=== PATIENT | female | born 1990 | race Caucasian/White ===

== ENCOUNTER 2020-03-14 22:22 | Emergency (ER) | payer SELFPAY | END 2020-03-14 22:52 | disposition left against medical advice (07) | LOC: EMS 22:22 | DX: F15.90 Other stimulant use, unspecified, uncomplicated (principal); Z53.21 Procedure and treatment not carried out due to patient leaving prior to being seen by health care provider ==

== ENCOUNTER 2020-03-15 17:10 | Inpatient (IN) | payer MEDICAID ==
[~2020-03-15] VITALS: Ht 165.1 cm; Wt 54.5 kg
[2020-03-15] MEDS ORDERED: LORazepam 2 MG/ML VIAL IM ONE (17:45)
[2020-03-15] MEDS ORDERED: HALOPERIDOL LACTATE 5 MG/ML VIAL IM ONE (17:45)
[2020-03-15] MEDS ORDERED: DiphenhydrAMINE HCL 50 MG/ML VIAL IM ONE (17:45)
[2020-03-15 19:03] LABS: BASOPHILS % (AUTO) 0.7 % (0.0-2.0); EOSINOPHILS % (AUTO) 0.1 % (1.0-6.0); HEMATOCRIT 33.1 % (36-46); LYMPHOCYTES # (AUTO) 1.2 K/uL (1.0-4.8); LYMPHOCYTES % (AUTO) 10.4 % (22.0-44.0); MEAN CORPUSCULAR HEMOGLOBIN 27.1 pg (26.0-34.0); MEAN CORPUSCULAR HGB CONC 33.2 G/dL (31.0-37.0); MEAN CORPUSCULAR VOLUME 82 fL (80-100); MONOCYTES % (AUTO) 8.4 % (2.0-9.0); NEUTROPHILS # (AUTO) 9.4 K/uL (1.8-7.7); NEUTROPHILS % (AUTO) 80.4 % (40.0-70.0); PLATELET COUNT (AUTO) 274 K/uL (150-450); RED BLOOD CELL COUNT(AUTO) 4.05 MIL/uL (4.00-5.20)
[2020-03-15 19:17] LABS: ANION GAP 14 mmol/L (8-16); CALCIUM, TOTAL 8.7 mg/dL (8.8-10.5); CARBON DIOXIDE 21 mmol/L (22-29); CHLORIDE 100 mmol/L (98-107); CREATININE 0.74 mg/dL (0.60-1.30); GLOMERULAR FILTR. RATE CALC > 60 mL/min (>60); GLUCOSE,RANDOM 82 mg/dL (70-110); POTASSIUM 3.3 mmol/L (3.5-5.1); SODIUM SERUM 135 mmol/L (136-145); UREA NITROGEN, BLOOD 16 mg/dL (7-18)
[2020-03-15 19:23] LABS: ALANINE AMINOTRANSFERASE 19 U/L (12-78); ALBUMIN 3.6 g/dL (3.4-5.0); ALKALINE PHOSPHATASE 80 U/L (46-116); ASPARTATE AMINOTRANSFERASE 36 U/L (15-37); BILIRUBIN,TOTAL 1.3 mg/dL (0.1-1.0); TOTAL PROTEIN, SERUM 7.4 g/dL (6.4-8.2)
[2020-03-15] MEDS ORDERED: POTASSIUM CHLORIDE 20 MEQ ER TABLET PO ONE (20:30)
[2020-03-15 21:58] VITALS: BP 110/60
[2020-03-16 05:12] VITALS: BP 105/77
[2020-03-16] MEDS ORDERED: LOPERAMIDE HCL 2 MG CAPSULE PO PRN (07:00)
[2020-03-16] MEDS ORDERED: MAGNESIUM HYDROXIDE SUSPENSION 30 ML UDCUP PO PRN (07:00)
[2020-03-16] MEDS ORDERED: ACETAMINOPHEN 325 MG TABLET PO PRN (07:00)
[2020-03-16] MEDS ORDERED: ALBUTEROL SULFATE HFA 90 MCG/PUFF 8 GM INHALER IH PRN (07:00)
[2020-03-16] MEDS ORDERED: MAG HYDROX/AL HYDROX/SIMETH ES 30 ML SUSPENSION UDCUP PO PRN (07:00)
[2020-03-16] MEDS ORDERED: GuaiFENesin/D-METHORPHAN [SUGAR-FREE] 200-20MG/10 ML SYRUP UDCUP PO PRN (07:00)
[2020-03-16] MEDS ORDERED: ONDANSETRON HCL 4 MG TABLET PO PRN (07:00)
[2020-03-16] MEDS ORDERED: CloNIDine HCL 0.1 MG TABLET PO PRN (07:00)
[2020-03-16] MEDS ORDERED: DOCUSATE SODIUM 100 MG CAPSULE PO PRN (07:00)
[2020-03-16] MEDS ORDERED: IBUPROFEN 400 MG TABLET PO PRN (07:00)
[2020-03-16] MEDS ORDERED: NICOTINE 14 MG/24 HOUR PATCH TD PRN (07:00)
[2020-03-16] MEDS ORDERED: PETROLATUM,WHITE 28 GM JELLY TP PRN (07:00)
[2020-03-16] MEDS: BACITRACIN 28.4 GM OINTMENT TP SCH ×2 (08:51→18:59)
[2020-03-16] MEDS ORDERED: POTASSIUM CHLORIDE 20 MEQ ER TABLET PO ONE ×2 (09:15→16:45)
[2020-03-16] MEDS: OLANZapine 5 MG TABLET PO SCH (16:27)
[2020-03-17 06:03] VITALS: BP 101/72
[2020-03-17 07:39] LABS: ANION GAP 14 mmol/L (8-16); CALCIUM, TOTAL 8.5 mg/dL (8.8-10.5); CARBON DIOXIDE 23 mmol/L (22-29); CHLORIDE 102 mmol/L (98-107); CHOL/HDL RATIO 2.9 (3.9-5.7); CHOLESTEROL 146 mg/dL (131-200); CREATININE 0.73 mg/dL (0.60-1.30); GLOMERULAR FILTR. RATE CALC > 60 mL/min (>60); GLUCOSE,RANDOM 63 mg/dL (70-110); HDL CHOLESTEROL 50 mg/dL (40-60); LDL CHOL (CALC.) 75 mg/dL (0-130); POTASSIUM 3.7 mmol/L (3.5-5.1); SODIUM SERUM 139 mmol/L (136-145); TRIGLYCERIDES 106 mg/dL (15-150); UREA NITROGEN, BLOOD 13 mg/dL (7-18)
[2020-03-17] MEDS: OLANZapine 5 MG TABLET PO SCH ×2 (09:25→16:20)
[2020-03-17] MEDS: BACITRACIN 28.4 GM OINTMENT TP SCH ×2 (09:25→17:10)
[2020-03-17] MEDS: LORazepam 2 MG TABLET PO PRN (09:44)
[2020-03-17 16:47] VITALS: BP 120/78
[2020-03-18] MEDS: LORazepam 2 MG TABLET PO PRN ×2 (08:41→13:59)
[2020-03-18] MEDS: OLANZapine 5 MG TABLET PO SCH ×2 (08:41→16:36)
[2020-03-18] MEDS: BACITRACIN 28.4 GM OINTMENT TP SCH ×2 (08:41→16:36)
[2020-03-18] MEDS: HALOPERIDOL 5 MG TABLET PO PRN (12:04)
[2020-03-18 16:18] VITALS: BP 131/76
[2020-03-19 00:42] VITALS: BP 124/73
[2020-03-19] MEDS: MULTIVITAMINS WITH MINERALS, THERAPEUTIC TABLET PO SCH (08:23)
[2020-03-19] MEDS: OLANZapine 5 MG TABLET PO SCH ×2 (08:23→17:19)
[2020-03-19] MEDS: BACITRACIN 28.4 GM OINTMENT TP SCH ×2 (08:24→17:00)
[2020-03-19 08:27] LABS: APPEARANCE,URINE CLOUDY (CLEAR); GLUCOSE, URINE (UA) NEGATIVE (NEGATIVE); KETONES,URINE TRACE mg/dL (NEGATIVE); LEUKOCYTE ESTERASE ,URINE LARGE (NEGATIVE); NITRATE,URINE NEGATIVE (NEGATIVE); OCCULT BLOOD,URINE LARGE (NEGATIVE); PROTEIN,URINE SEE CONFIRM (NEGATIVE)
[2020-03-19 08:28] LABS: BILIRUBIN,URINE PRELIM. POSITIVE (NEGATIVE)
[2020-03-19] MEDS: LORazepam 2 MG TABLET PO PRN ×2 (08:28→16:44)
[2020-03-19 08:34] LABS: SULFOSALICYLIC ACID,URINE 3+ (Negative)
[2020-03-19 08:35] LABS: BACTERIA,URINE Few /HPF (None Seen); RENAL EPITHELIAL CELLS,URINE Few /LPF (None Seen); SQUAMOUS EPITHELIAL CELL,UR Many /LPF (None Seen)
[2020-03-19 08:39] LABS: AMPHET/METH SCREEN,URINE NEGATIVE (NEGATIVE); BARBITURATE SCREEN, URINE NEGATIVE (NEGATIVE); BENZODIAZEPINES SCREEN,URINE NEGATIVE (NEGATIVE); CANNABINOID SCREEN,URINE POSITIVE (NEGATIVE); COCAINE SCREEN,URINE NEGATIVE (NEGATIVE); METHADONE SCREEN, URINE NEGATIVE (NEGATIVE); OPIATE SCREEN,URINE NEGATIVE (NEGATIVE)
[2020-03-19 08:40] LABS: PHENCYCLIDINE SCREEN,URINE NEGATIVE (NEGATIVE)
[2020-03-19] MEDS ORDERED: DiphenhydrAMINE HCL 50 MG/ML VIAL ONE (17:11)
[2020-03-19] MEDS ORDERED: LORazepam 2 MG/ML VIAL ONE (17:11)
[2020-03-19] MEDS ORDERED: HALOPERIDOL LACTATE 5 MG/ML VIAL ONE (17:11)
[2020-03-19] MEDS ORDERED: DiphenhydrAMINE HCL 50 MG/ML VIAL IM ONE (17:15)
[2020-03-19] MEDS ORDERED: LORazepam 2 MG/ML VIAL IM ONE (17:15)
[2020-03-19] MEDS ORDERED: HALOPERIDOL LACTATE 5 MG/ML VIAL IM ONE (17:15)
[2020-03-19] MEDS: ZOLPIDEM TARTRATE 10 MG TABLET PO PRN (20:31)
[2020-03-20 02:41] VITALS: BP 122/76
[2020-03-20] MEDS: MULTIVITAMINS WITH MINERALS, THERAPEUTIC TABLET PO SCH (09:26)
[2020-03-20] MEDS: LORazepam 2 MG TABLET PO PRN ×2 (09:26→16:57)
[2020-03-20] MEDS: OLANZapine 5 MG TABLET PO SCH ×2 (09:26→16:57)
[2020-03-20] MEDS: BACITRACIN 28.4 GM OINTMENT TP SCH ×2 (09:31→16:58)
[2020-03-20 16:21] VITALS: BP 101/64
[2020-03-20] MEDS: ZOLPIDEM TARTRATE 10 MG TABLET PO PRN (20:43)
[2020-03-20] MEDS: CEPHALEXIN MONOHYDRATE 500 MG CAPSULE PO SCH (20:43)
[2020-03-21 08:12] LABS: MAGNESIUM 1.9 mg/dL (1.80-2.40); PHOSPHORUS 4.3 mg/dL (2.5-4.9)
[2020-03-21] MEDS: CEPHALEXIN MONOHYDRATE 500 MG CAPSULE PO SCH ×3 (08:39→23:44)
[2020-03-21] MEDS: MULTIVITAMINS WITH MINERALS, THERAPEUTIC TABLET PO SCH (08:39)
[2020-03-21] MEDS: OLANZapine 5 MG TABLET PO SCH ×2 (08:39→15:54)
[2020-03-21] MEDS: BACITRACIN 28.4 GM OINTMENT TP SCH ×2 (08:40→15:54)
[2020-03-21] MEDS: LORazepam 2 MG TABLET PO PRN ×2 (12:53→17:21)
[2020-03-21 16:17] VITALS: BP 100/68
[2020-03-21] MEDS: HALOPERIDOL 5 MG TABLET PO PRN (17:21)
[2020-03-21] MEDS ORDERED: DiphenhydrAMINE HCL 50 MG/ML VIAL ONE (18:09)
[2020-03-21] MEDS ORDERED: HALOPERIDOL LACTATE 5 MG/ML VIAL IM ONE (18:15)
[2020-03-21] MEDS ORDERED: DiphenhydrAMINE HCL 50 MG/ML VIAL IM ONE (18:15)
[2020-03-22 04:12] VITALS: BP 106/65
[2020-03-22 08:36] VITALS: BP 131/76
[2020-03-22] MEDS: OLANZapine 5 MG TABLET PO SCH (08:39)
[2020-03-22] MEDS: LORazepam 2 MG TABLET PO PRN (08:39)
[2020-03-22] MEDS: CEPHALEXIN MONOHYDRATE 500 MG CAPSULE PO SCH ×3 (08:39→23:12)
[2020-03-22] MEDS: MULTIVITAMINS WITH MINERALS, THERAPEUTIC TABLET PO SCH (08:39)
[2020-03-22] MEDS: BACITRACIN 28.4 GM OINTMENT TP SCH ×2 (08:40→16:17)
[2020-03-22] MEDS: OLANZapine 10 MG TABLET PO SCH (16:16)
[2020-03-22] MEDS: GABAPENTIN 300 MG CAPSULE PO SCH (16:17)
[2020-03-22 17:02] VITALS: BP 100/61
[2020-03-23 04:28] VITALS: BP 127/78
[2020-03-23] MEDS: LORazepam 2 MG TABLET PO PRN ×4 (04:29→16:25)
[2020-03-23] MEDS: OLANZapine 10 MG TABLET PO SCH ×2 (08:08→16:25)
[2020-03-23] MEDS: GABAPENTIN 300 MG CAPSULE PO SCH ×2 (08:08→16:25)
[2020-03-23] MEDS: CEPHALEXIN MONOHYDRATE 500 MG CAPSULE PO SCH ×3 (08:08→23:05)
[2020-03-23] MEDS: MULTIVITAMINS WITH MINERALS, THERAPEUTIC TABLET PO SCH (08:08)
[2020-03-23] MEDS: BACITRACIN 28.4 GM OINTMENT TP SCH ×2 (08:08→17:00)
[2020-03-23 08:37] VITALS: BP 135/71
[2020-03-23] MEDS ORDERED: NICOTINE POLACRILEX 2 MG LOZENGE PO PRN (13:30)
[2020-03-23 16:28] VITALS: BP 137/80
[2020-03-24 04:24] VITALS: BP 126/81
[2020-03-24] MEDS: MULTIVITAMINS WITH MINERALS, THERAPEUTIC TABLET PO SCH (08:40)
[2020-03-24] MEDS: OLANZapine 10 MG TABLET PO SCH ×2 (08:41→16:24)
[2020-03-24] MEDS: CEPHALEXIN MONOHYDRATE 500 MG CAPSULE PO SCH ×2 (08:41→16:24)
[2020-03-24] MEDS: GABAPENTIN 300 MG CAPSULE PO SCH ×2 (08:41→16:24)
[2020-03-24 09:47] VITALS: BP 127/79
[2020-03-24] MEDS ORDERED: NICOTINE POLACRILEX 2 MG LOZENGE PO PRN (12:00)
[2020-03-24] MEDS: LORazepam 2 MG TABLET PO PRN ×2 (13:16→17:38)
[2020-03-24 21:00] VITALS: BP 112/82
[2020-03-25 05:50] VITALS: BP 107/67
[2020-03-25] MEDS: CEPHALEXIN MONOHYDRATE 500 MG CAPSULE PO SCH ×3 (08:52→16:28)
[2020-03-25] MEDS: LORazepam 2 MG TABLET PO PRN ×2 (08:52→15:38)
[2020-03-25] MEDS: OLANZapine 10 MG TABLET PO SCH ×2 (08:52→16:29)
[2020-03-25] MEDS: MULTIVITAMINS WITH MINERALS, THERAPEUTIC TABLET PO SCH (08:52)
[2020-03-25] MEDS: GABAPENTIN 300 MG CAPSULE PO SCH ×2 (08:52→16:28)
[2020-03-25] MEDS: HALOPERIDOL 5 MG TABLET PO PRN ×2 (10:09→17:48)
[2020-03-25 10:36] VITALS: BP 126/83
[2020-03-25 16:29] VITALS: BP 114/69
[2020-03-26 05:08] VITALS: BP 106/63
[2020-03-26] MEDS: HALOPERIDOL 5 MG TABLET PO PRN (06:21)
[2020-03-26] MEDS: CEPHALEXIN MONOHYDRATE 500 MG CAPSULE PO SCH ×4 (08:25→23:56)
[2020-03-26] MEDS: OLANZapine 10 MG TABLET PO SCH ×2 (08:25→16:28)
[2020-03-26] MEDS: MULTIVITAMINS WITH MINERALS, THERAPEUTIC TABLET PO SCH (08:25)
[2020-03-26] MEDS: GABAPENTIN 300 MG CAPSULE PO SCH ×2 (08:25→16:28)
[2020-03-26 08:31] VITALS: BP 108/66
[2020-03-26 17:22] VITALS: BP 141/80
[2020-03-27 02:30] VITALS: BP 130/72
[2020-03-27 08:23] VITALS: BP 143/84
[2020-03-27] MEDS: MULTIVITAMINS WITH MINERALS, THERAPEUTIC TABLET PO SCH (08:24)
[2020-03-27] MEDS: OLANZapine 10 MG TABLET PO SCH ×2 (08:24→16:22)
[2020-03-27] MEDS: GABAPENTIN 300 MG CAPSULE PO SCH ×2 (08:24→16:24)
[2020-03-27] MEDS: CEPHALEXIN MONOHYDRATE 500 MG CAPSULE PO SCH ×3 (08:24→23:59)
[2020-03-27] MEDS: HALOPERIDOL 5 MG TABLET PO PRN (09:31)
[2020-03-27 17:17] VITALS: BP 137/85
[2020-03-28 04:10] VITALS: BP 123/76
[2020-03-28] MEDS: GABAPENTIN 300 MG CAPSULE PO SCH ×2 (08:18→16:16)
[2020-03-28] MEDS: MULTIVITAMINS WITH MINERALS, THERAPEUTIC TABLET PO SCH (08:18)
[2020-03-28] MEDS: OLANZapine 10 MG TABLET PO SCH ×2 (08:18→16:16)
[2020-03-28] MEDS: CEPHALEXIN MONOHYDRATE 500 MG CAPSULE PO SCH ×3 (08:18→23:56)
[2020-03-28 08:30] VITALS: BP 100/59
[2020-03-28 16:20] VITALS: BP 113/71
[2020-03-29 04:53] VITALS: BP 102/75
[2020-03-29] MEDS: HALOPERIDOL 5 MG TABLET PO PRN (06:31)
[2020-03-29] MEDS: MULTIVITAMINS WITH MINERALS, THERAPEUTIC TABLET PO SCH (08:08)
[2020-03-29] MEDS: GABAPENTIN 300 MG CAPSULE PO SCH ×2 (08:08→16:30)
[2020-03-29] MEDS: OLANZapine 10 MG TABLET PO SCH ×2 (08:08→16:30)
[2020-03-29] MEDS: CEPHALEXIN MONOHYDRATE 500 MG CAPSULE PO SCH ×2 (08:08→16:30)
[2020-03-29] MEDS: GuaiFENesin SR 600 MG ER TABLET PO SCH ×2 (08:08→16:31)
[2020-03-29 08:27] VITALS: BP 129/78
[2020-03-29] MEDS ORDERED: GABA-1181 PO (14:01)
[2020-03-29] MEDS ORDERED: OLAN10TA3 PO (14:02)
[2020-03-29 17:31] VITALS: BP 131/78
== END 2020-03-29 18:23 | disposition home or self-care (01) | DRG 885 ==
LOC: EMS 17:52 → B3A 20:30
PROVIDERS: ADMIT Psychiatry & Neurology Psychiatry; ATTEND Psychiatry & Neurology Psychiatry
DX: F20.0 Paranoid schizophrenia (principal); N39.0 Urinary tract infection, site not specified; E87.6 Hypokalemia; D64.9 Anemia, unspecified; F12.10 Cannabis abuse, uncomplicated
CPT/HCPCS: 83735; 84100; 87086; 99291; G0480; J1200; J1630; J2060